=== PATIENT | male | born 1955 | race Two or more races ===

== ENCOUNTER 2024-05-03 12:57 | Outpatient (AMB) | payer MEDICARE, MEDICAID, SELFPAY ==
--- NOTE | 2024-05-03 13:11 | PD.ORTHCLVIS ---
Vital signs 05/03/24 13:25 Height 1.7 m Height Method Stated Weight 98.911 kg Weight Measurement Method Standing Scale BMI 34.2 BP 149/106 H Blood Pressure Source Automatic Cuff Blood Pressure Location Left Upper Arm Position Sitting Respiration 18 Pulse 114 H Pulse Source Monitor Temp 97.8 F Temp Source Temporal Artery Scan Pulse Oximetry (%) 96 Oxygen Delivery Method Room Air Med/Allergies Allergies & Medications Allergies No Known Allergies Allergy (Verified 05/03/24 13:26) Medication Reconciliation amlodipine 10 mg tablet 10 mg PO QDAY 12/31/23 [History Confirmed 05/03/24] amlodipine 2.5 mg tablet 2.5 mg PO QDAY 12/31/23 [History Confirmed 05/03/24] aspirin 81 mg tablet,delayed release (Adult Aspirin Regimen) 81 mg PO QDAY 12/31/23 [History Confirmed 05/03/24] atorvastatin 40 mg tablet 40 mg PO QDAY 12/31/23 [History Confirmed 05/03/24] hydroxyzine HCl 25 mg tablet 25 mg PO QHS 12/31/23 [History Confirmed 05/03/24] lisinopril 40 mg tablet 40 mg PO QDAY 12/31/23 [History Confirmed 05/03/24] naproxen 500 mg tablet 500 mg PO BID 12/31/23 [History Confirmed 05/03/24] Exam Exam Patient is in no acute distress and is cooperative with the examination today. Breathing is nonlabored. In no respiratory distress. Bilateral extremities were evaluated and demonstrates sensation intact to light touch. Palpable pedal pulses are present. No significant edema is present. Bilateral hips were examined. The patient has no pain with log roll of the hips. Internal rotation to 30 degrees and external rotation to 30 degrees is painless. Negative FADIR. The left knee was examined. The left knee is in [varus] alignment. Range of motion from [0-115] degrees. Knee is stable to varus and valgus as well as AP translation with <5mm. Patient has a [negative] McMurrays. There is [no] pain with patellofemoral compression and [no] crepitus noted. The knee is [tender] to palpation [medially]. The right knee was also examined. The right knee is in [varus] alignment. Range of motion from [0-120] degrees. Knee is stable to varus and valgus as well as AP translation with <5mm. Patient has a [negative] McMurrays. There is [no] pain with patellofemoral compression and [no] crepitus noted. The knee is [tender] to palpation [medially]. We have x-rays that demonstrate varus deformity and complete joint space obliteration of the medial compartment on the left. Right knee x-rays also demonstrate complete obliteration of the medial joint space and varus arthritis Assessment and Plan Problem List (1) Degenerative arthritis of knee, bilateral: Status: Acute Plan: Patient is a pleasant 68-year-old male with bilateral knee pain and bilateral knee arthritis. The pain is affecting his quality life and happiness.He tried injections reports helped somewhat. He would like an injection on the right knee reports the left knee pain is miserable. He would like to proceed with surgery. We thus discussed total knee replacement is reasonable option as he had injections, And anti-inflammatories, As well as physical therapy The nature and purpose of the total knee replacement, alternative method(s) of treatment, the material risks involved, and the possibility of complications were fully explained to the patient. The patient does NOT have any of the following contraindications to TKA: - Active infection of the knee joint, OR - Active systemic bacteremia, OR - Active skin infection or open wound at surgical site, OR - Neuropathic arthritis, OR - Severe, rapidly progressive neurological disease, OR - Severe medical condition that makes risks of surgery outweigh the potential benefit The patient was told the most common risks and complications associated with a total knee replacement include, but are not limited to: blood clots in the leg, fatal pulmonary embolism, dislocation of the prosthesis, intraoperative and postoperative fractures of the femur or tibia, infection, failure of the prosthesis or grafting materials, complications from anesthesia, reactions to blood transfusions, postoperative leg length inequality, instability of the knee replacement, nerve damage or injury, vascular injury, delayed wound healing, infection, other injury or even . In addition, there are risks associated with anesthesia given during this operation. Also, the patient was told that after undergoing a total knee replacement there may still be persistent pain or disability. The patient was informed that the success of this operation in part depends upon the mechanical devices which are going to be implanted and that these devices can fail or malfunction, and may need to be repaired or replaced and there are no guarantees as to the longevity of this device or its parts and that it or its parts could fail prematurely. The patient was also notified that during the course of surgery, there may be a need to use bone graft from donors, and that any bone graft used will be carefully screened for communicable diseases, including AIDS, hepatitis, Jad-Creutzfeldt, or other diseases, but despite the screening procedures, there is a small chance that they could contract one of these diseases. Finally, the patient was asked to follow completely and fully with all advice and recommended treatments, and that recovery and ultimate outcome are affected by their compliance with recommended treatment. We discussed the risks, benefits and treatment alternatives, and the patient is interested in proceeding with surgery. We will try to set this up as expeditiously as possible. Plan Recommend knee cortisone injection as patient would like to proceed with conservative treatment at this time. The risks and benefits of the procedure were reviewed with the patient and patient gave verbal consent to continue with the procedure. Procedure: performed by Dr. Fontenot Using sterile technique the Right knee was thoroughly prepped with alcohol, and approximately 1 cc of Kenalog 40 mg/mL and 4 cc of 1% lidocaine was injected without resistance into the medial tibial femoral joint space. The patient tolerated the procedure. Advanced Care Planning Discussion Advance care planning discussed with:: patient Office Procedures GNS Level of Care Nursing/Assessment Patient Status: Established Patient Nursing Assessment/Reassesment: Medication Reconciliation, Update PMH in EMR and Vital Signs Coordination of Care: Complex Care and Chronic Disease 1-5, Education Complex Pt/Fam, Consent,records obtained, informed consent, Results/Orders obtained and Staff clarify orders Special Needs: Language special needs Established Patient Charge Established Patient Point Assignment: 95 Established Patient Point Charge: EP Level 3 (80-115) Medication Given Medication Given Medication Given: Yes Documented Dose Given: 4 Route: Infiitration Medication Given Medication Given Medication Given: Yes Documented Dose Given: 1 Route: Infiitration Office Meds Xylocaine 10 mg/mL (1 %) injection solution Performing Provider: Po Fontenot MD Performing Location: [facility] Administered by: Po Fontenot MD on 05/03/24 13:29 Dose Route Admin Location Dispensed Lot Number Expiration Date [facility] English Language Learner Tutor 20 mL Infiltration 20 mL [id number] 12/17/26 85284-711-38 [facility] triamcinolone acetonide 40 mg/mL suspension for injection Performing Provider: Po Fontenot MD Performing Location: [facility] Administered by: Po Fontenot MD on 05/03/24 13:29 Dose Route Admin Location Dispensed Lot Number Expiration Date [facility] English Language Learner Tutor 40 mg intra-articular KNEE 1 mL [id number] 09/16/25 3471-6431-88 [employer] [place] Intake Visit Data Collection New Patient or Established: Established Patient (seen at [facility] within 3 years) Reason for Visit:: 3MTH F/U BL KNEE INJ Seen by Clinical Staff ONLY (RN/MA): No High School Librarian Required: Yes PCP or OBGYN visit in last 3 months: Yes Hx Now: No Do You Feel Safe at Home: Yes Authorities Contacted: N/A Questionairres Past Medical History Past Medical History Have you ever been diagnosed with any of the following: Cardiology Problems Hypertension: Yes Respiratory Problems Smoking: No Smoking Exposure: No Subjective Visit Visit for: follow up visit, knee (BILATERAL) and injections Immunization / Flu Flu Vaccine in the Last 12 Months: No Flu Vaccine Exclusion Criteria: No Exclusion Criteria History of Present Illness Chief complaint: left knee pain Andres is a pleasant 68-year-old male with a left greater than right knee pain. This has been ongoing since 3 weeks. The left knee pain is excruciating. He has tried meloxicam and Celebrex but has not had any anti-inflammatories. He has tried weight loss as well. Pain Pain level (0-10): 6 Pain duration: ALL DAY Pain location: inside (medial) Pain quality: sharp, dull and aching Pain timing: increases with activity Associated signs & symptoms: none Ambulatory data Ambulatory device: cane Treatments Number of previous injections: 4 Improvement with previous injections: Yes Improvement with PT: No Improvement with NSAIDS: no Review of Systems Review of Systems: All systems negative unless otherwise noted in HPI.
[2024-05-03 13:25] VITALS: BP 149/106; PULSE 114; RESP 18; TEMP 36.6; O2SAT 96; BMI 34.2
== END 2024-05-03 13:20 | disposition home or self-care (01) ==
LOC: HODSRG 12:57
PROVIDERS: PCP Family Medicine; Referring Provider Family Medicine; Supervising Provider Orthopaedic Surgery Adult Reconstructive Orthopaedic Surgery; Visit Provider Orthopaedic Surgery Adult Reconstructive Orthopaedic Surgery
DX: M17.0 Bilateral primary osteoarthritis of knee (principal); M25.562 Pain in left knee; M25.561 Pain in right knee; I10 Essential (primary) hypertension
CPT/HCPCS: 20610; 99213; J3301; J3490; G0463

== ENCOUNTER 2024-06-02 10:51 | Outpatient (AMB) | payer MEDICARE, MEDICAID, SELFPAY ==
[2024-06-02 11:14] VITALS: BP 149/87; PULSE 90; RESP 18; TEMP 36.6; O2SAT 95; BMI 33.6
--- NOTE | 2024-06-02 11:14 | PD.ORTHCLVIS ---
Vital signs 06/02/24 11:14 Height 1.7 m Height Method Stated Weight 97.296 kg Weight Measurement Method Standing Scale BMI 33.6 BP 149/87 H Blood Pressure Source Automatic Cuff Blood Pressure Location Left Upper Arm Position Sitting Respiration 18 Pulse 90 Pulse Source Monitor Temp 97.8 F Temp Source Temporal Artery Scan Pulse Oximetry (%) 95 Oxygen Delivery Method Room Air Med/Allergies Allergies & Medications Allergies No Known Allergies Allergy (Verified 06/02/24 11:15) Medication Reconciliation amlodipine 10 mg tablet 10 mg PO QDAY 12/31/23 [History Confirmed 06/02/24] amlodipine 2.5 mg tablet 2.5 mg PO QDAY 12/31/23 [History Confirmed 06/02/24] aspirin 81 mg tablet,delayed release (Adult Aspirin Regimen) 81 mg PO QDAY 12/31/23 [History Confirmed 06/02/24] atorvastatin 40 mg tablet 40 mg PO QDAY 12/31/23 [History Confirmed 06/02/24] hydroxyzine HCl 25 mg tablet 25 mg PO QHS 12/31/23 [History Confirmed 06/02/24] lisinopril 40 mg tablet 40 mg PO QDAY 12/31/23 [History Confirmed 06/02/24] naproxen 500 mg tablet 500 mg PO BID 12/31/23 [History Confirmed 06/02/24] Exam Exam Patient is in no acute distress and is cooperative with the examination today. Breathing is nonlabored. In no respiratory distress. Bilateral extremities were evaluated and demonstrates sensation intact to light touch. Palpable pedal pulses are present. No significant edema is present. Bilateral hips were examined. The patient has no pain with log roll of the hips. Internal rotation to 30 degrees and external rotation to 30 degrees is painless. Negative FADIR. The left knee was examined. The left knee is in [varus] alignment. Range of motion from [0-115] degrees. Knee is stable to varus and valgus as well as AP translation with <5mm. Patient has a [negative] McMurrays. There is [no] pain with patellofemoral compression and [no] crepitus noted. The knee is [tender] to palpation [medially]. The right knee was also examined. The right knee is in [varus] alignment. Range of motion from [0-120] degrees. Knee is stable to varus and valgus as well as AP translation with <5mm. Patient has a [negative] McMurrays. There is [no] pain with patellofemoral compression and [no] crepitus noted. The knee is [tender] to palpation [medially]. We have x-rays that demonstrate varus deformity and complete joint space obliteration of the medial compartment on the left. Right knee x-rays also demonstrate complete obliteration of the medial joint space and varus arthritis Assessment and Plan Problem List (1) Degenerative arthritis of knee, bilateral: Status: Acute Plan: Patient is a pleasant 68-year-old male with bilateral knee pain and bilateral knee arthritis. The pain is affecting his quality life and happiness.He tried injections reports helped somewhat. He would like an injection on the right knee reports the left knee pain is miserable. He would like to proceed with surgery. We thus discussed total knee replacement is reasonable option as he had injections, And anti-inflammatories, As well as physical therapy The nature and purpose of the total knee replacement, alternative method(s) of treatment, the material risks involved, and the possibility of complications were fully explained to the patient. The patient does NOT have any of the following contraindications to TKA: - Active infection of the knee joint, OR - Active systemic bacteremia, OR - Active skin infection or open wound at surgical site, OR - Neuropathic arthritis, OR - Severe, rapidly progressive neurological disease, OR - Severe medical condition that makes risks of surgery outweigh the potential benefit The patient was told the most common risks and complications associated with a total knee replacement include, but are not limited to: blood clots in the leg, fatal pulmonary embolism, dislocation of the prosthesis, intraoperative and postoperative fractures of the femur or tibia, infection, failure of the prosthesis or grafting materials, complications from anesthesia, reactions to blood transfusions, postoperative leg length inequality, instability of the knee replacement, nerve damage or injury, vascular injury, delayed wound healing, infection, other injury or even . In addition, there are risks associated with anesthesia given during this operation. Also, the patient was told that after undergoing a total knee replacement there may still be persistent pain or disability. The patient was informed that the success of this operation in part depends upon the mechanical devices which are going to be implanted and that these devices can fail or malfunction, and may need to be repaired or replaced and there are no guarantees as to the longevity of this device or its parts and that it or its parts could fail prematurely. The patient was also notified that during the course of surgery, there may be a need to use bone graft from donors, and that any bone graft used will be carefully screened for communicable diseases, including AIDS, hepatitis, Jad-Creutzfeldt, or other diseases, but despite the screening procedures, there is a small chance that they could contract one of these diseases. Finally, the patient was asked to follow completely and fully with all advice and recommended treatments, and that recovery and ultimate outcome are affected by their compliance with recommended treatment. We discussed the risks, benefits and treatment alternatives, and the patient is interested in proceeding with surgery. We will try to set this up as expeditiously as possible. Advanced Care Planning Discussion Advance care planning discussed with:: patient Office Procedures GNS Level of Care Nursing/Assessment Patient Status: Established Patient Nursing Assessment/Reassesment: Medication Reconciliation, Update PMH in EMR and Vital Signs Coordination of Care: Complex Care and Chronic Disease 1-5, Education Complex Pt/Fam, Consent,records obtained, informed consent, Results/Orders obtained and Staff clarify orders Established Patient Charge Established Patient Point Assignment: 95 Established Patient Point Charge: EP Level 3 (80-115) MA Intake Visit Data Collection New Patient or Established: Established Patient (seen at [facility] within 3 years) Reason for Visit:: PRE OP L TKA Seen by Clinical Staff ONLY (RN/MA): No Channel Process Plant Operator Required: Yes PCP or OBGYN visit in last 3 months: Yes Hx Now: No Do You Feel Safe at Home: Yes Authorities Contacted: N/A Questionairres Past Medical History Past Medical History Have you ever been diagnosed with any of the following: Cardiology Problems Hypertension: Yes Respiratory Problems Smoking: No Smoking Exposure: No Subjective Visit Visit for: follow up visit and knee Immunization / Flu Flu Vaccine in the Last 12 Months: No Flu Vaccine Exclusion Criteria: No Exclusion Criteria History of Present Illness Chief complaint: left knee pain Andres is a pleasant 68-year-old male with a left greater than right knee pain. The knee pain has been ongoing for quite a while and is affecting his quality life and happiness. The left knee pain is excruciating. He has tried meloxicam and Celebrex but has not had any anti-inflammatories. He has tried weight loss as well. Pain Pain level (0-10): 8 Pain duration: ALL DAY Pain location: inside (medial) Pain quality: sharp, dull and aching Pain timing: increases with activity Associated signs & symptoms: none Ambulatory data Ambulatory device: cane and none Treatments Number of previous injections: 4 Improvement with previous injections: No Improvement with PT: No Improvement with NSAIDS: no Review of Systems Review of Systems: All systems negative unless otherwise noted in HPI.
== END 2024-06-02 11:23 | disposition home or self-care (01) ==
PROVIDERS: PCP Family Medicine; Referring Provider Family Medicine; Supervising Provider Orthopaedic Surgery Adult Reconstructive Orthopaedic Surgery; Visit Provider Orthopaedic Surgery Adult Reconstructive Orthopaedic Surgery
DX: M17.0 Bilateral primary osteoarthritis of knee (principal); M25.562 Pain in left knee; M25.561 Pain in right knee; I10 Essential (primary) hypertension
CPT/HCPCS: 99213; G0463

== ENCOUNTER → 2024-06-08 | Outpatient (CLI) | payer MEDICARE, MEDICAID, SELFPAY ==
--- NOTE | 2024-06-08 15:30 | XR_ITS ---
Examination: CT left lower extremity, without contrast. 2-D sagittal reconstructions. 2-D coronal reconstructions. 3-D reconstructions. Date and time of exam:June 08, 2024 1543 hours INDICATIONS: Diagnosis primary osteoarthritis left knee knee pain 2 years CTDI: vol (mGy):10.8 DLP: (mGycm):812 Technique: Multiple 1.25 mm axial sections of the left lower extremity without intravenous contrast have been obtained. 2-D sagittal and coronal reconstructions have been obtained. 3-D reconstructions have been obtained. Low dose protocols were performed. One or more of the following dose reduction techniques were used; automated exposure control, adjustment of the mA and/or KV according to patient size, use of iterative reconstruction technique. Findings: Moderate osteopenia Moderate narrowing left hip joint No left hip fracture or dislocation No avascular necrosis Advanced left knee tricompartment osteoarthritis, most severe medial patellofemoral joints No fracture or dislocation No avascular necrosis IMPRESSION: Advanced left knee tricompartment osteoarthritis
== END | disposition home or self-care (01) ==
PROVIDERS: Referring Provider Orthopaedic Surgery Adult Reconstructive Orthopaedic Surgery; Visit Provider Orthopaedic Surgery Adult Reconstructive Orthopaedic Surgery
DX: M17.12 Unilateral primary osteoarthritis, left knee (principal)
CPT/HCPCS: 73700

== ENCOUNTER 2024-06-15 08:20 | Day surgery (SDC) | payer MEDICARE, MEDICAID, SELFPAY ==
[2024-06-14 11:14] VITALS: BMI 34.1
[2024-06-14 13:43] LABS: Basophils # (Auto) 0.1 Thou/mm3 (0.0-0.2); Basophils % (Auto) 1 % (0-2.5); Eosinophils # (Auto) 0.5 Thou/mm3 (0.0-0.5); Eosinophils % (Auto) 6 % (0-10); Hematocrit 45.2 % (41.0-53.0); Immature Granulocytes % (Auto) 0 % (0-0); Immature Granulocytes Auto 0.02 Thou/mm3 (0.00-0.00); Lymphocytes # (Auto) 3.6 Thou/mm3 (1.0-4.8); Lymphocytes % (Auto) 44 % (10-50); Mean Corpuscular HGB Conc 33.2 g/dl (31.0-37.0); Mean Corpuscular Hemoglobin 30.1 pg (25.0-35.0); Mean Corpuscular Volume 91 fL (80-100); Monocytes # (Auto) 0.4 Thou/mm3 (0.0-0.8); Monocytes % (Auto) 5 % (0-12); Neutrophils # (Auto) 3.6 Thou/mm3 (1.8-7.7); Neutrophils % (Auto) 44 % (37-80); Nucleated Red Blood Cell % 0 /100 WBC (0); Platelet Count 229 Thou/mm3 (140-440); RDW Standard Deviation 45.2 fL (35.1-43.9); Red Blood Count 4.98 Miln/mm3 (4.50-5.90); White Blood Count 8.1 Thou/mm3 (3.8-10.6)
[2024-06-14 13:53] LABS: Alanine Aminotransferase 20 U/L (10-49); Albumin, Serum 4.6 gm/dL (3.4-4.8); Albumin/Globulin Ratio 1.3 (1.2-2.2); Alkaline Phosphatase 123 U/L (46-116); Anion Gap 10 (7-16); Aspartate Amino Transferase 26 U/L (0-34); BUN/Creatinine Ratio 29 Ratio (12-20); Bilirubin,Total 0.4 mg/dL (0.3-1.2); Blood Urea Nitrogen 26 mg/dL (9-23); Calcium 9.8 mg/dL (8.3-10.6); Calcium (Corrected) 9.8 mg/dL (8.5-10.1); Carbon Dioxide 25.7 mMol/L (20.0-31.0); Chloride 108 mMol/L (98-107); Creatinine (Component) 0.9 mg/dL (0.6-1.3); Estimated Creatinine Clearance 90.5 mL/min (>60); Globulin 3.6 gm/dL (2.3-3.5); Glucose 103 mg/dL (74-106); Osmolality,Calculated 291 (275-295); Potassium 4.5 mMol/L (3.4-5.1); Sodium 144 mMol/L (136-145); Total Protein 8.2 gm/dL (5.7-8.2); eGFR > 60 See Note
[2024-06-14 13:56] LABS: Partial Thromboplastin Time 24.6 Seconds (22.0-36.0); Prothrombin Time 10.7 Seconds (9.0-12.2)
[2024-06-15] VITALS (15 sets, daily range): BP systolic 95–136; BP diastolic 68–88; PULSE 74–93; RESP 12–20; TEMP 36.4–36.9; O2SAT 95–99; BMI 34.0
--- NOTE | 2024-06-15 08:40 | EKG_ITS ---
[facility], [place] Test Date: 2024-06-15 Pat Name: JAYLENE MARTINEZ Department: Room: - Gender: Male Checker Stocker: LORENZO : 1955 Requested By: Zia Hylton Order Number: [id number] Reading MD: Zia Hylton Measurements Intervals [place] Rate: 71 P: 52 ID: [id number] QRS: -10 QRSD: 92 T: 6 QT: 365 QTc: 398 Interpretive Statements SINUS RHYTHM WITH FIRST DEGREE AV BLOCK LOW QRS VOLTAGE IN PRECORDIAL LEADS POSSIBLE RIGHT VENTRICULAR CONDUCTION DELAY No previous ECG available for comparison /[id number]
[2024-06-15] MEDS: ACETAMINOPHEN 325 MG TABLET 650 MG PO (09:24)
[2024-06-15] MEDS: RINGERS LACTATED 1000 ML 1,000 ML 20 ML IV (09:24)
[2024-06-15] MEDS: PREGABALIN 75 MG CAPSULE PO (09:25)
[2024-06-15] MEDS: MELOXICAM 7.5 MG TABLET PO (09:25)
--- NOTE | 2024-06-15 10:32 | XR_ITS ---
Examination: AP lateral knee 2 views, left Technique: AP lateral left knee 2 views Exam date and time: June 15, 2024 1252 hrs. Indications: Postop knee replacement Findings: Left knee arthroplasty. Satisfactory alignment Moderate osteopenia Impression: Left knee arthroplasty with satisfactory alignment
--- NOTE | 2024-06-15 11:05 | PC.NURSE ---
Small scab on toe on left foot. Made aware. Ok to Proceed.
--- NOTE | 2024-06-15 12:27 | PD.SUROPNT ---
Date of Procedure 06/15/24 Pre Op Diagnosis left knee osteoarthritis Post Op Diagnosis left knee osteoarthritis Procedure left total knee replacement robotic Findings significant osteophytes, Procedure Description Indication: The patient is a 68 year old who has a long history of left knee pain. X-rays show degenerative arthritis involving the knee. Over the past several years the patient has had increasing pain, progressive limitation in function. He has failed conservative measures including activity modification, physical therapy, injections, anti-inflammatories, and assistive devices. After a lengthy discussion of the risks and benefits, the patient presents now for total knee replacement. The nature and purpose of the total knee replacement, alternative method(s) of treatment, the material risks involved, and the possibility of complications were fully explained to the patient. The patient was told the most common risks and complications associated with a total knee replacement include, but are not limited to blood clots in the leg, fatal pulmonary embolism, dislocation of the prosthesis, intraoperative and postoperative fractures of the femur or tibia, infection, failure of the prosthesis or grafting materials, complications from anesthesia, reactions to blood transfusions, postoperative leg length inequality, instability of the knee replacement, nerve damage or injury, vascular injury, delayed wound healing, infections, other injury or even . In addition, there are risks associated with anesthesia given during this operation, temporary or permanent numbness on the skin lateral to the incision can be a complication unique to total knee surgery, and kneeling can be painful after knee replacement surgery. Also, the patient was told that after undergoing a total knee replacement there may still be pain or disability. We discussed with the patient that we will be using a robot-assisted technology. We discussed that there is a possibility of converting to manual instrumentation. The patient was informed that the success of this operation in part depends upon the mechanical devices which are going to be implanted and that these devices can fail or malfunction, and may need to be repaired or replaced and there are no guarantees as to the longevity of this device or its part and that it or its parts could fail prematurely. Finally, the patient was asked to follow completely and fully with all advice and recommended treatments, and that recovery and ultimate outcome are affected by their compliance with recommended treatment. Surgical technique: Patient was marked and consented in the pre-operative area. The patient was brought to the operating room and placed on the operating table in a supine position. Prior to positioning, a timeout procedure was performed between the surgeon, the anesthesiologist, and the nursing staff where the patient and the operative side were identified and confirmed. After adequate general anesthetic was obtained, the left lower extremity was prepped and draped in the usual sterile fashion. A weight based dose of Cefazolin were administered within 1 hour prior to incision. The robot was preregistered and calirated before the incision. The extremity was exsanguinated with an esmarch badge and tourniquet inflated to 250mmHg. A midline incision was made. A median parapatellar arthrotomy was made. The patella was subluxed laterally. A medial release was performed to expose the medial tibia. His femoral and tibial pins were placed through an intra incisional manner for both cases. Every effort was made to ensure that the distalmost aspect of the pin was hung in the second cortex. The arrays were then tightened several times to ensure that it was fixed for the remainder of the case. Both femoral and tibial checkpoints were then placed. We then went through the registration process of the bone. We then assessed the knee deformity and attempted to correct it. We also used the robot to aid in judging laxity in both extension and flexion. Final based on laxity and alignment we changed the preoperative assessment to obtain proper proper implant positioning and to correct deformity. Attention was then placed to the tibia. We made a tibial cut using the robot ensuring that both the MCL and the patella tendon were protected with retractors. We then went to the femur and made the posterior cut followed by the anterior cut and the anterior chamfer. The bone was then removed and we made a distal femur cut and a posterior chamfer cut. We verified all cuts. A trial reduction was performed with a size 4 femoral component and a size 4 keeled tibial component.. The patella tracked centrally, and no lateral retinacular release was necessary. The trial implants were removed. The arrays, pins, and checkpoints were all removed. We performed a verification that all pins were removed. The cut bone surfaces were lavaged. A size 4 left femoral component, a size 4 keeled tibial component were impacted into position. The knee was felt to be well balanced in the sagittal and coronal plane. The final 4x11 mm cruciate-substituting articular insert was impacted into the tibial tray. The knee was brought out to full extension, flexed up to 120 degrees. It was stable to varus and valgus stress and appropriately balanced in flexion and extension. The wounds were copiously irrigated following deflation of tourniquet. The medial retinaculum was reapproximated with #1 vicryl and quill. The subcutaneous tissues were closed with 0 and 2-0 interrupted Vicryl. The skin was closed with 3-0 Monofilament V loc suture. A sterile dressing was applied. The patient was transferred to a bed and brought to recovery in stable condition. The patient tolerated the procedure well. There were no intraoperative complications. Sponge and needle counts were correct times 2. As the attending surgeon, Ariana kelsey I was present and performed the entire operation. Grafts/Implants Size 4 CR Femur Size 4 Tibia 11mm poly CS Anesthesia spinal Implants [employer] Pathology / specimen None Pathology comment: none Estimated Blood Loss 150 Surgeon Po Fontenot MD Surgical Staff Operation Date: 06/15/24 11:00 Case Staff Anesthesiologist: Hari Brown RN First Assistant: Janis Spicer
--- NOTE | 2024-06-15 12:40 | SUR.PHASEI ---
1240 Patient arrived to recovery, awake and talking with staff, breathing unlabored, vital signs stable, denies pain, dressing intact to left knee; prineo, telfa, abd, webril, syeda wraps, no bleeding noted, post spinal anesthesia assessment via ice; patient has dermatome sensation at L1-groin, patient unable to movement lower extremities due to spinal anesthesia, will monitor, lung sounds clear upon auscultation, bilateral dorsalis pedis pulses present when palpated, patient has good circulation to left lower extremity; skin color is normal for patient and warm to touch, report received from Dulce MOCK and Dr. Brown
--- NOTE | 2024-06-15 12:55 | SUR.PHASEI ---
1255 xray complete per MD order
--- NOTE | 2024-06-15 13:00 | SUR.PHASEI ---
1300 patient sitting up in bed, drinking water
--- NOTE | 2024-06-15 13:15 | SUR.PHASEI ---
1315 Patients sister contacted via telephone and update on patients status, patient is doing well, all questions answered from sister
--- NOTE | 2024-06-15 13:23 | SUR.PHASEI ---
patient sitting up in bed eating lunch tray
--- NOTE | 2024-06-15 14:40 | SUR.PHASEII ---
8611 Post spinal anesthesia assessment complete patient has dermatome sensation at S2 perineum, will contact PT
--- NOTE | 2024-06-15 14:50 | SUR.PHASEII ---
patient voided 100ml in urinal
--- NOTE | 2024-06-15 15:09 | SUR.PHASEII ---
1509 Patient cleared by physical therapist Butch to proceed with discharge, awaitng for patients family to arrive
--- NOTE | 2024-06-15 16:00 | SUR.PHASEII ---
1600 Patient meets discharge criteria from recovery, awake and alert, breathing unlabored, vital signs stable, denies pain, dressing intact; no bleeding noted, denies nausea, patient voided in urinal prior to discharge, patient assisted with dressing into his clothing by this automotive service writer, discharge instructions given to patient and patients sister with teach-back approach used, patient and his sister both receptive, sister signed discharge instructions. Patient given all his belongings prior to discharge, transported via wheelchair and left in a private vehicle.
== END 2024-06-15 16:00 | disposition home or self-care (01) ==
PROVIDERS: Anesthesiology; PCP Family Medicine; Referring Provider Orthopaedic Surgery Adult Reconstructive Orthopaedic Surgery; Visit Provider Orthopaedic Surgery Adult Reconstructive Orthopaedic Surgery
PROC: (CPT 27447; principal; 2024-06-15 11:00)
DX: M17.12 Unilateral primary osteoarthritis, left knee (principal); M25.762 Osteophyte, left knee; Z01.810 Encounter for preprocedural cardiovascular examination
CPT/HCPCS: 27447; 20985; 36415; 73560; 80053; 85025; 85610; 85730; 93005; 97162; A4217; C1713; C1776; J0690; J1100; J1885; J2250; J2704; J2795; J3010; J3490; J7030; J7120; J7999; A4648; A4649; A9270

== ENCOUNTER 2024-06-30 13:02 | Outpatient (AMB) | payer MEDICARE, MEDICAID, SELFPAY ==
[2024-06-30 13:18] VITALS: BP 117/72; PULSE 93; RESP 19; TEMP 36.5; O2SAT 95; BMI 33.9
--- NOTE | 2024-06-30 13:18 | ORTHONT_ITS ---
Vital signs 06/30/24 13:18 Height 1.7 m Height Method Stated Weight 98.089 kg Weight Measurement Method Standing Scale BMI 33.9 BP 117/72 Blood Pressure Source Automatic Cuff Blood Pressure Location Left Upper Arm Position Sitting Respiration 19 Pulse 93 Pulse Source Monitor Temp 97.7 F Temp Source Temporal Artery Scan Pulse Oximetry (%) 95 Oxygen Delivery Method Room Air Med/Allergies Allergies & Medications Allergies No Known Allergies Allergy (Verified 06/30/24 13:19) Medication Reconciliation amlodipine 10 mg tablet 10 mg PO QDAY 12/31/23 [History Confirmed 06/30/24] atorvastatin 40 mg tablet 40 mg PO QDAY 12/31/23 [History Confirmed 06/30/24] hydroxyzine HCl 25 mg tablet 25 mg PO QHS 12/31/23 [History Confirmed 06/30/24] lisinopril 40 mg tablet 40 mg PO QDAY 12/31/23 [History Confirmed 06/30/24] naproxen 500 mg tablet 500 mg PO BID PRN pain 12/31/23 [History Confirmed 06/30/24] acetaminophen 500 mg tablet (Acetaminophen Extra Strength) 1,000 mg (2 x 500 mg) PO Q6H PRN pain #90 tabs 06/15/24 [Rx Confirmed 06/30/24] aspirin 81 mg tablet,delayed release 81 mg PO BID #60 tabs 06/15/24 [Rx Confirmed 06/30/24] doxycycline hyclate 100 mg tablet 100 mg PO BID #14 tabs 06/15/24 [Rx Confirmed 06/30/24] gabapentin 300 mg capsule 300 mg PO .qhs #30 caps 06/15/24 [Rx Confirmed 06/30/24] oxycodone 5 mg tablet 5 mg PO Q6H PRN pain #28 tabs 06/15/24 [Rx Confirmed 06/30/24] sennosides 8.6 mg-docusate sodium 50 mg tablet (Senna-S) 1 tab-cap PO QDAY #30 tabs 06/15/24 [Rx Confirmed 06/30/24] oxycodone 5 mg tablet 5 mg PO Q6H PRN pain #28 tabs 06/30/24 [Rx] Exam Exam Patient is in no acute distress and is cooperative with the examination today. Breathing is nonlabored. In no respiratory distress. Bilateral extremities were evaluated and demonstrates sensation intact to light touch. Palpable pedal pulses are present. No significant edema is present. Bilateral hips were examined. The patient has no pain with log roll of the hips. Internal rotation to 30 degrees and external rotation to 30 degrees is painless. Negative FADIR. Left knee incision is clean dry intact. Range of motion is 5 to 100 degrees Assessment and Plan Problem List (1) Degenerative arthritis of knee, bilateral: Status: Acute Plan: Patient is a pleasant 68-year-old male with bilateral knee pain and bilateral knee arthritis. THe is doing well status post left total knee replacement. I sent him a new refill for oxycodone. He should finish off his DVT prophylaxis. Will see him in 4 weeks Advanced Care Planning Discussion Advance care planning discussed with:: patient Office Procedures GNS Level of Care Nursing/Assessment Patient Status: Established Patient Nursing Assessment/Reassesment: Medication Reconciliation, Update PMH in EMR and Vital Signs Coordination of Care: Complex Care and Chronic Disease 1-5, Education Complex Pt/Fam, Consent,records obtained, informed consent, Results/Orders obtained and Staff clarify orders Established Patient Charge Established Patient Point Assignment: 95 Established Patient Point Charge: EP Level 3 (80-115) MA Intake Visit Data Collection New Patient or Established: Established Patient (seen at [facility] within 3 years) Reason for Visit:: POST OP 2 WEEK Seen by Clinical Staff ONLY (RN/MA): No Flatbed Owner Operator Required: Yes PCP or OBGYN visit in last 3 months: Yes Hx Now: No Do You Feel Safe at Home: Yes Authorities Contacted: N/A Questionairres Past Medical History Past Medical History Have you ever been diagnosed with any of the following: Neurological Problems Seizures: No Cardiology Problems Hypercholesterolemia: Yes Congestive Heart Failure: No Hypertension: Yes Respiratory Problems Chronic Obstructive Pulmonary Disease (COPD): No Bronchitis: Yes Smoking: No Smoking Exposure: No Genital/Urinary Problems Renal Disease: No Musculoskeletal Problems Arthritis: Yes Endocrine Problems Diabetes Mellitus Type 1: No Diabetes Mellitus Type 2: No Other Problems Hospitalization: No Shingles: No Blood Transfusions: No Blood Transfusion Reaction: No Anesthesia Reactions: No Cancer: No Subjective Visit Visit for: follow up visit, post op #1 and knee Immunization / Flu Flu Vaccine in the Last 12 Months: No Flu Vaccine Exclusion Criteria: No Exclusion Criteria History of Present Illness Chief complaint: Left knee pain Andres is a pleasant 68-year-old male who is 2 weeks status post left total knee replacement. He is doing well. He has minimal pain. Pain Pain level (0-10): 2 Pain duration: ON AND OFF Pain location: anterior Pain quality: aching Pain timing: increases with activity Ambulatory data Ambulatory device: walker Treatments Improvement with previous injections: No Improvement with PT: No Improvement with NSAIDS: no Review of Systems Review of Systems: All systems negative unless otherwise noted in HPI.
== END 2024-06-30 13:18 | disposition home or self-care (01) ==
LOC: HODSRG 13:02
PROVIDERS: PCP Family Medicine; Referring Provider Family Medicine; Supervising Provider Orthopaedic Surgery Adult Reconstructive Orthopaedic Surgery; Visit Provider Orthopaedic Surgery Adult Reconstructive Orthopaedic Surgery
DX: M17.0 Bilateral primary osteoarthritis of knee (principal); Z96.652 Presence of left artificial knee joint; E78.00 Pure hypercholesterolemia, unspecified; I10 Essential (primary) hypertension
CPT/HCPCS: 99213; G0463

== ENCOUNTER 2024-07-26 09:51 | Outpatient (AMB) | payer MEDICARE, SELFPAY ==
[2024-07-26 10:03] VITALS: BP 104/61; PULSE 96; RESP 18; TEMP 36.6; O2SAT 95; BMI 33.6
--- NOTE | 2024-07-26 10:03 | ORTHONT_ITS ---
Vital signs 07/26/24 10:03 Height 1.7 m Height Method Stated Weight 97.324 kg Weight Measurement Method Standing Scale BMI 33.6 BP 104/61 Blood Pressure Source Automatic Cuff Blood Pressure Location Right Upper Arm Position Sitting Respiration 18 Pulse 96 Pulse Source Monitor Temp 97.8 F Temp Source Temporal Artery Scan Pulse Oximetry (%) 95 Oxygen Delivery Method Room Air Med/Allergies Allergies & Medications Allergies No Known Allergies Allergy (Verified 07/26/24 10:05) Medication Reconciliation amlodipine 10 mg tablet 10 mg PO QDAY 12/31/23 [History Confirmed 07/26/24] atorvastatin 40 mg tablet 40 mg PO QDAY 12/31/23 [History Confirmed 07/26/24] hydroxyzine HCl 25 mg tablet 25 mg PO QHS 12/31/23 [History Confirmed 07/26/24] lisinopril 40 mg tablet 40 mg PO QDAY 12/31/23 [History Confirmed 07/26/24] naproxen 500 mg tablet 500 mg PO BID PRN pain 12/31/23 [History Confirmed 07/26/24] acetaminophen 500 mg tablet (Acetaminophen Extra Strength) 1,000 mg (2 x 500 mg) PO Q6H PRN pain #90 tabs 06/15/24 [Rx Confirmed 07/26/24] aspirin 81 mg tablet,delayed release 81 mg PO BID #60 tabs 06/15/24 [Rx Confirmed 07/26/24] gabapentin 300 mg capsule 300 mg PO .qhs #30 caps 06/15/24 [Rx Confirmed 07/26/24] oxycodone 5 mg tablet 5 mg PO Q6H PRN pain #28 tabs 06/30/24 [Rx Confirmed 07/26/24] Exam Exam Patient is in no acute distress and is cooperative with the examination today. Breathing is nonlabored. In no respiratory distress. Bilateral extremities were evaluated and demonstrates sensation intact to light touch. Palpable pedal pulses are present. No significant edema is present. Bilateral hips were examined. The patient has no pain with log roll of the hips. Internal rotation to 30 degrees and external rotation to 30 degrees is painless. Negative FADIR. Left knee incision is clean dry intact. Range of motion is 5 to 100 degrees Assessment and Plan Problem List (1) Degenerative arthritis of knee, bilateral: Status: Acute Plan: Patient is a pleasant 68-year-old male with bilateral knee pain and bilateral knee arthritis. THe is doing well status post left total knee replacement. He should continuie with PT. He wants To get his right knee replaced once his left is fully healed. We discussed we can reevaluate the subject in approximately 2 months Advanced Care Planning Discussion Advance care planning discussed with:: patient and other Office Procedures GNS Level of Care Nursing/Assessment Patient Status: Established Patient Nursing Assessment/Reassesment: Medication Reconciliation, Update PMH in EMR and Vital Signs Coordination of Care: Complex Care and Chronic Disease 1-5, Education Complex Pt/Fam, Consent,records obtained, informed consent, Results/Orders obtained and Staff clarify orders Special Needs: Language special needs Established Patient Charge Established Patient Point Assignment: 95 Established Patient Point Charge: EP Level 3 (80-115) MA Intake Visit Data Collection New Patient or Established: Established Patient (seen at [facility] within 3 years) Reason for Visit:: F/U 6 WEEK TKA Seen by Clinical Staff ONLY (RN/MA): No Verbal consent obtained for Telemed visit?: No Wardrobe Specialist Required: Yes PCP or OBGYN visit in last 3 months: Yes Hx Now: No Do You Feel Safe at Home: Yes Authorities Contacted: N/A Questionairres Past Medical History Past Medical History Have you ever been diagnosed with any of the following: Neurological Problems Seizures: No Cardiology Problems Hypercholesterolemia: Yes Congestive Heart Failure: No Hypertension: Yes Respiratory Problems Chronic Obstructive Pulmonary Disease (COPD): No Bronchitis: Yes Smoking: No Smoking Exposure: No Genital/Urinary Problems Renal Disease: No Musculoskeletal Problems Arthritis: Yes Endocrine Problems Diabetes Mellitus Type 1: No Diabetes Mellitus Type 2: No Other Problems Hospitalization: No Shingles: No Blood Transfusions: No Blood Transfusion Reaction: No Anesthesia Reactions: No Cancer: No Subjective Visit Visit for: follow up visit and knee Immunization / Flu Flu Vaccine in the Last 12 Months: No Flu Vaccine Exclusion Criteria: No Exclusion Criteria History of Present Illness Chief complaint: 6 WK FOLLOW UP TKA Andres is a pleasant 68-year-old male who is 6 weeks status post left total knee replacement. He is doing well. He has minimal pain. Personal History Red flag PMH: BMI BMI Counceling provided: Yes Pain Pain level (0-10): 2 Pain duration: COMES AND GOES Pain location: inside (medial), outside (lateral), anterior and posterior Pain quality: dull and aching Pain timing: increases with activity Associated signs & symptoms: none Ambulatory data Ambulatory device: walker Treatments Improvement with previous injections: No Improvement with PT: No Improvement with NSAIDS: no Review of Systems Review of Systems: All systems negative unless otherwise noted in HPI.
== END 2024-07-26 10:32 | disposition home or self-care (01) ==
LOC: HODSRG 09:51
PROVIDERS: PCP Family Medicine; Referring Provider Family Medicine; Supervising Provider Orthopaedic Surgery Adult Reconstructive Orthopaedic Surgery; Visit Provider Orthopaedic Surgery Adult Reconstructive Orthopaedic Surgery
DX: M17.0 Bilateral primary osteoarthritis of knee (principal); M25.562 Pain in left knee; M25.561 Pain in right knee; Z96.652 Presence of left artificial knee joint; I10 Essential (primary) hypertension; E78.00 Pure hypercholesterolemia, unspecified
CPT/HCPCS: 99213; G0463

== ENCOUNTER 2024-09-20 13:04 | Outpatient (AMB) | payer MEDICARE, MEDICAID, SELFPAY ==
--- NOTE | 2024-09-20 13:10 | ORTHONT_ITS ---
Vital signs 09/20/24 13:11 Height 1.7 m Height Method Stated Weight 95.368 kg Weight Measurement Method Standing Scale BMI 33.0 BP 133/79 H Blood Pressure Source Automatic Cuff Blood Pressure Location Left Upper Arm Position Sitting Respiration 18 Pulse 85 Pulse Source Monitor Temp 97.9 F Temp Source Temporal Artery Scan Pulse Oximetry (%) 97 Oxygen Delivery Method Room Air Med/Allergies Allergies & Medications Allergies No Known Allergies Allergy (Verified 09/20/24 13:12) Medication Reconciliation amlodipine 10 mg tablet 10 mg PO QDAY 12/31/23 [History Confirmed 09/20/24] atorvastatin 40 mg tablet 40 mg PO QDAY 12/31/23 [History Confirmed 09/20/24] hydroxyzine HCl 25 mg tablet 25 mg PO QHS 12/31/23 [History Confirmed 09/20/24] lisinopril 40 mg tablet 40 mg PO QDAY 12/31/23 [History Confirmed 09/20/24] naproxen 500 mg tablet 500 mg PO BID PRN pain 12/31/23 [History Confirmed 09/20/24] acetaminophen 500 mg tablet (Acetaminophen Extra Strength) 1,000 mg (2 x 500 mg) PO Q6H PRN pain #90 tabs 06/15/24 [Rx Confirmed 09/20/24] aspirin 81 mg tablet,delayed release 81 mg PO BID #60 tabs 06/15/24 [Rx Confirmed 09/20/24] gabapentin 300 mg capsule 300 mg PO .qhs #30 caps 06/15/24 [Rx Confirmed 09/20/24] oxycodone 5 mg tablet 5 mg PO Q6H PRN pain #28 tabs 06/30/24 [Rx Confirmed 09/20/24] Exam Exam Patient is in no acute distress and is cooperative with the examination today. Breathing is nonlabored. In no respiratory distress. Bilateral extremities were evaluated and demonstrates sensation intact to light touch. Palpable pedal pulses are present. No significant edema is present. Bilateral hips were examined. The patient has no pain with log roll of the hips. Internal rotation to 30 degrees and external rotation to 30 degrees is painless. Negative FADIR. Left knee incision is clean dry intact. Range of motion is 5 to 100 degrees Right knee demonstrates varus deformity. He is tender to palpation medially. Knee feels stable varus valgus stress as well as AP translation Left knee x-rays demonstrates a cementless knee replacement with alignment position. Right knee demonstrates varus deformity and complete obliteration of the medial joint space Assessment and Plan Problem List (1) Degenerative arthritis of knee, bilateral: Status: Acute Plan: Patient is a 68-year-old male who is status post left total knee replacement who is doing well. He reports the right knee Hurts him significantly more is affecting his quality life and happiness. We have tried injections, anti- inflammatories, and physical therapy for his right knee. He would like to get this done as he has significant right knee pain The nature and purpose of the total knee replacement, alternative method(s) of treatment, the material risks involved, and the possibility of complications were fully explained to the patient. The patient does NOT have any of the following contraindications to TKA: - Active infection of the knee joint, OR - Active systemic bacteremia, OR - Active skin infection or open wound at surgical site, OR - Neuropathic arthritis, OR - Severe, rapidly progressive neurological disease, OR - Severe medical condition that makes risks of surgery outweigh the potential benefit The patient was told the most common risks and complications associated with a total knee replacement include, but are not limited to: blood clots in the leg, fatal pulmonary embolism, dislocation of the prosthesis, intraoperative and postoperative fractures of the femur or tibia, infection, failure of the prosthesis or grafting materials, complications from anesthesia, reactions to blood transfusions, postoperative leg length inequality, instability of the knee replacement, nerve damage or injury, vascular injury, delayed wound healing, infection, other injury or even . In addition, there are risks associated with anesthesia given during this operation. Also, the patient was told that after undergoing a total knee replacement there may still be persistent pain or disability. The patient was informed that the success of this operation in part depends upon the mechanical devices which are going to be implanted and that these devices can fail or malfunction, and may need to be repaired or replaced and there are no guarantees as to the longevity of this device or its parts and that it or its parts could fail prematurely. The patient was also notified that during the course of surgery, there may be a need to use bone graft from donors, and that any bone graft used will be carefully screened for communicable diseases, including AIDS, hepatitis, Jad-Creutzfeldt, or other diseases, but despite the screening procedures, there is a small chance that they could contract one of these diseases. Finally, the patient was asked to follow completely and fully with all advice and recommended treatments, and that recovery and ultimate outcome are affected by their compliance with recommended treatment. We discussed the risks, benefits and treatment alternatives, and the patient is interested in proceeding with surgery. We will try to set this up as expeditiously as possible. Advanced Care Planning Discussion Advance care planning discussed with:: patient Office Procedures GNS Level of Care Nursing/Assessment Patient Status: Established Patient Nursing Assessment/Reassesment: Medication Reconciliation, Update PMH in EMR and Vital Signs Coordination of Care: Complex Care and Chronic Disease 1-5, Education Complex Pt/Fam, Consent,records obtained, informed consent, Results/Orders obtained and Staff clarify orders Special Needs: Language special needs Established Patient Charge Established Patient Point Assignment: 95 Established Patient Point Charge: EP Level 3 (80-115) MA Intake Visit Data Collection New Patient or Established: Established Patient (seen at [facility] within 3 years) Reason for Visit:: FOLLOW UP L TKA Seen by Clinical Staff ONLY (RN/MA): No Independent Living Instructor Required: Yes PCP or OBGYN visit in last 3 months: Yes Hx Now: No Do You Feel Safe at Home: Yes Authorities Contacted: N/A Questionairres Past Medical History Past Medical History Have you ever been diagnosed with any of the following: Neurological Problems Seizures: No Cardiology Problems Hypercholesterolemia: Yes Congestive Heart Failure: No Hypertension: Yes Respiratory Problems Chronic Obstructive Pulmonary Disease (COPD): No Bronchitis: Yes Smoking: No Smoking Exposure: No Genital/Urinary Problems Renal Disease: No Musculoskeletal Problems Arthritis: Yes Endocrine Problems Diabetes Mellitus Type 1: No Diabetes Mellitus Type 2: No Other Problems Hospitalization: No Shingles: No Blood Transfusions: No Blood Transfusion Reaction: No Anesthesia Reactions: No Cancer: No Surgical History Total Knee Replacement: Yes (LEFT) Subjective Visit Visit for: follow up visit and knee Immunization / Flu Flu Vaccine in the Last 12 Months: No Flu Vaccine Exclusion Criteria: Already Received History of Present Illness Chief complaint: 6 WK FOLLOW UP TKA Andres is a pleasant 68-year-old male who is 12 weeks status post left total knee replacement. He is doing well. He has minimal pain. He reports the right knee is now affecting his quality life and it is significantly worse than the left as the left knee pain has improved significantly. We thus discussed continued nonoperative options versus operative options. Personal History Red flag PMH: BMI BMI Counceling provided: Yes Pain Pain level (0-10): 0 Pain duration: COMES AND GOES Pain location: inside (medial), outside (lateral), anterior and posterior Pain quality: dull and aching Pain timing: increases with activity Associated signs & symptoms: none Ambulatory data Ambulatory device: none Treatments Improvement with previous injections: No Improvement with PT: No Improvement with NSAIDS: no Review of Systems Review of Systems: All systems negative unless otherwise noted in HPI.
[2024-09-20 13:11] VITALS: BP 133/79; PULSE 85; RESP 18; TEMP 36.6; O2SAT 97; BMI 33.0
--- NOTE | 2024-09-20 13:30 | XR_ITS ---
Examination: Bilateral knees 2 views Right lateral knee left lateral knee 2 views Bilateral axial knees single view TECHNIQUE: Bilateral AP knees single view standing, bilateral PA knees standing single view flexion Standing right lateral knee left lateral knee 2 views Bilateral axial knees single view total 5 views Date and time: September 20, 2024 1357 hours INDICATIONS: Left knee surgery June 15, 2024, chronic right knee pain. FINDINGS: Prominent osteopenia Severe narrowing medial joint space right knee, [id number] Advanced osteoarthritis right patellofemoral and lateral joint spaces Total left knee arthroplasty. Satisfactory alignment. No loosening of the prosthetic components IMPRESSION: Advanced right knee tricompartment osteoarthritis, including severe narrowing medial joint space, [id number]
== END 2024-09-20 13:32 | disposition home or self-care (01) ==
PROVIDERS: PCP Family Medicine; Referring Provider Family Medicine; Supervising Provider Orthopaedic Surgery Adult Reconstructive Orthopaedic Surgery; Visit Provider Orthopaedic Surgery Adult Reconstructive Orthopaedic Surgery
DX: M17.0 Bilateral primary osteoarthritis of knee (principal); Z96.652 Presence of left artificial knee joint; M25.561 Pain in right knee; M25.562 Pain in left knee
CPT/HCPCS: 73564; 99213; G0463

== ENCOUNTER → 2024-10-13 | Outpatient (CLI) | payer MEDICARE, MEDICAID, SELFPAY ==
--- NOTE | 2024-10-13 12:00 | XR_ITS ---
Examination: CT right lower extremity, without contrast. 2-D sagittal reconstructions. 2-D coronal reconstructions. 3-D reconstructions. Date and time of exam:October 13, 2024 1202 hours INDICATIONS: Diagnosis right knee unilateral osteoarthritis knee pain 5 years CTDI: vol (mGy):10.6 DLP: (mGycm):867 Technique: Multiple 1.25 mm axial sections of the right lower extremity without intravenous contrast have been obtained. 2-D sagittal and coronal reconstructions have been obtained. 3-D reconstructions have been obtained. Low dose protocols were performed. One or more of the following dose reduction techniques were used; automated exposure control, adjustment of the mA and/or KV according to patient size, use of iterative reconstruction technique. Findings: Moderate osteopenia Mild to moderate narrowing right hip joint No right hip fracture or hip dislocation Advanced right knee tricompartment osteoarthritis, severe narrowing medial joint space No fracture IMPRESSION: Advanced right knee tricompartment osteoarthritis
== END | disposition home or self-care (01) ==
PROVIDERS: PCP Family Medicine; Referring Provider Orthopaedic Surgery Adult Reconstructive Orthopaedic Surgery; Visit Provider Orthopaedic Surgery Adult Reconstructive Orthopaedic Surgery
DX: M17.11 Unilateral primary osteoarthritis, right knee (principal)
CPT/HCPCS: 73700

== ENCOUNTER 2024-11-03 12:38 | Outpatient (AMB) | payer MEDICARE, MEDICAID, SELFPAY ==
--- NOTE | 2024-11-03 13:08 | PD.ORTHCLVIS ---
Vital signs 11/03/24 13:09 Height 1.65 m Height Method Stated Weight 94.971 kg Weight Measurement Method Standing Scale BMI 34.9 BP 141/93 H Blood Pressure Source Automatic Cuff Blood Pressure Location Left Upper Arm Position Sitting Respiration 18 Pulse 86 Pulse Source Monitor Temp 98.0 F Temp Source Temporal Artery Scan Pulse Oximetry (%) 96 Oxygen Delivery Method Room Air Med/Allergies Allergies & Medications Allergies No Known Allergies Allergy (Verified 11/03/24 13:11) Medication Reconciliation amlodipine 10 mg tablet 10 mg PO QDAY 12/31/23 [History Confirmed 11/03/24] atorvastatin 40 mg tablet 40 mg PO QDAY 12/31/23 [History Confirmed 11/03/24] lisinopril 40 mg tablet 40 mg PO QDAY 12/31/23 [History Confirmed 11/03/24] aspirin 81 mg tablet,delayed release 81 mg PO BID #60 tabs 06/15/24 [Rx Confirmed 11/03/24] acetaminophen 500 mg tablet (Acetaminophen Extra Strength) 1,000 mg (2 x 500 mg) PO Q6H PRN pain #90 tabs 10/20/24 [Rx Confirmed 11/03/24] aspirin 81 mg tablet,delayed release 81 mg PO BID #60 tabs 10/20/24 [Rx Confirmed 11/03/24] doxycycline hyclate 100 mg tablet 100 mg PO BID #14 tabs 10/20/24 [Rx Confirmed 11/03/24] gabapentin 300 mg capsule 300 mg PO .qhs #30 caps 10/20/24 [Rx Confirmed 11/03/24] oxycodone 5 mg tablet 5 mg PO Q6H PRN pain #28 tabs 10/20/24 [Rx Confirmed 11/03/24] sennosides 8.6 mg-docusate sodium 50 mg tablet (Senna-S) 1 tab-cap PO QDAY #30 tabs 10/20/24 [Rx Confirmed 11/03/24] Exam Exam Patient is in no acute distress and is cooperative with the examination today. Breathing is nonlabored. In no respiratory distress. Bilateral extremities were evaluated and demonstrates sensation intact to light touch. Palpable pedal pulses are present. No significant edema is present. Bilateral hips were examined. The patient has no pain with log roll of the hips. Internal rotation to 30 degrees and external rotation to 30 degrees is painless. Negative FADIR. Left knee incision is clean dry intact. Range of motion is 5 to 100 degrees Right knee incision c/d/i. Assessment and Plan Problem List (1) Degenerative arthritis of knee, bilateral: Status: Acute Plan: Patient is a 68-year-old male who is status post right total knee replacement who is doing well. We will start outpatient PT. We will see him in 4 weeks Advanced Care Planning Discussion Advance care planning discussed with:: patient Office Procedures GNS Level of Care Nursing/Assessment Patient Status: Established Patient Nursing Assessment/Reassesment: Medication Reconciliation, Update PMH in EMR and Vital Signs Coordination of Care: Complex Care and Chronic Disease 1-5, Education Complex Pt/Fam, Consent,records obtained, informed consent, Results/Orders obtained and Staff clarify orders Established Patient Charge Established Patient Point Assignment: 95 Established Patient Point Charge: Level 3 (80-115) MA Intake Visit Data Collection Reason for Visit:: FOLLOW UP L TKA Seen by Clinical Staff ONLY (RN/MA): No Production Engineer Track Required: Yes PCP or OBGYN visit in last 3 months: Yes Hx Now: No Do You Feel Safe at Home: Yes Authorities Contacted: N/A Questionairres Past Medical History Past Medical History Have you ever been diagnosed with any of the following: Neurological Problems Seizures: No Cardiology Problems Hypercholesterolemia: Yes Congestive Heart Failure: No Hypertension: Yes Respiratory Problems Chronic Obstructive Pulmonary Disease (COPD): No Bronchitis: Yes Smoking: No Smoking Exposure: No Stomache/Intestinal Problems Hepatitis: No Genital/Urinary Problems Renal Disease: No Musculoskeletal Problems Arthritis: Yes Endocrine Problems Diabetes Mellitus Type 1: No Diabetes Mellitus Type 2: No Other Problems Hospitalization: No Shingles: No Blood Transfusions: No Blood Transfusion Reaction: No Anesthesia Reactions: No Mumps: Yes Cancer: No Surgical History Total Knee Replacement: Yes (LEFT) Subjective Visit Visit for: follow up visit and knee Immunization / Flu Flu Vaccine in the Last 12 Months: No Flu Vaccine Exclusion Criteria: Already Received History of Present Illness Chief complaint: 6 WK FOLLOW UP TKA Andres is a pleasant 68-year-old male who is 2 weeks s/p R TKA. He is doing well Personal History Red flag PMH: BMI BMI Counceling provided: Yes Pain Pain level (0-10): 0 Pain duration: COMES AND GOES Pain location: inside (medial), outside (lateral), anterior and posterior Pain quality: dull and aching Pain timing: increases with activity Associated signs & symptoms: none Ambulatory data Ambulatory device: none Treatments Improvement with previous injections: No Improvement with PT: No Improvement with NSAIDS: no Review of Systems Review of Systems: All systems negative unless otherwise noted in HPI.
[2024-11-03 13:09] VITALS: BP 141/93; PULSE 86; RESP 18; TEMP 36.7; O2SAT 96; BMI 34.9
== END 2024-11-03 13:18 | disposition home or self-care (01) ==
LOC: HODSRG 12:38
PROVIDERS: PCP Physician Assistant; Referring Provider Physician Assistant; Supervising Provider Orthopaedic Surgery Adult Reconstructive Orthopaedic Surgery; Visit Provider Orthopaedic Surgery Adult Reconstructive Orthopaedic Surgery
DX: M17.0 Bilateral primary osteoarthritis of knee (principal); Z96.651 Presence of right artificial knee joint; I10 Essential (primary) hypertension; E78.00 Pure hypercholesterolemia, unspecified
CPT/HCPCS: 99213; G0463